=== PATIENT | male | born 1945 | race Caucasian/White ===

== ENCOUNTER → 2016-07-29 | Outpatient (CLI) | payer MEDICARE, OTHER ==
[~2016-07-29] MED LIST: ALLO100T PO; CALC500T55 PO; MULT-954 PO; ONDAN4ODT PO; SMV20T PO; TAMS-8 PO
[2016-07-29 16:22] LABS: MEAN CORPUSCULAR HGB CONC 32.6 g/dL (31.0-37.0); MEAN PLATELET VOLUME 10.4 FL (6.0-9.5); WHITE BLOOD COUNT 8.22 10^3uL (4.0-11.0)
[2016-07-29 16:38] LABS: ALBUMIN 4.2 g/dL (3.4-5.0); ANION GAP 14.1 MEQ/L (3-15); TOTAL PROTEIN 7.4 g/dL (6.4-8.5)
[2016-07-29 17:13] LABS: BILIRUBIN,URINE Negative (Negative); CLARITY,URINE Clear; COLOR,URINE Yellow; GLUCOSE, URINE (UA) Negative (Negative); LEUKOCYTE ESTERASE, URINE Negative (Negative); PH,URINE 5.5 (5.0 - 8.0); UROBILINOGEN,URINE 0.2 mg/dL (0.2-1.0)
== END ==
LOC: LAB 15:57
PROVIDERS: ATTEND Neurological Surgery
DX: Z01.812 Encounter for preprocedural laboratory examination (principal); M54.12 Radiculopathy, cervical region; Z98.890 Other specified postprocedural states
CPT/HCPCS: 36415; 80053; 81003; 85027; 85610; 85730

== ENCOUNTER 2016-09-13 11:25 | Emergency (ER) | payer MEDICARE, OTHER ==
[~2016-09-13] VITALS: Ht 182.9 cm; Wt 91.4 kg
--- OUTSIDE RECORDS SUMMARY | 2016-09-13 11:30 | XMS REPORT | Continuity of Care Document ---
Author Author [facility] Organization [facility] Address Unknown Phone Unavailable Care Team Providers Care Parole Officer Name Role Phone PCP Unavailable Source Comments Some departments are not documenting in the electronic medical record. If you do not see the information that you expected, contact Release of Information in the Health Information Management department at [phone] for further assistance in locating additional records.[facility] Active Allergies and Adverse Reactions Allergen Noted Date Severity Reactions Comments Pcn 07/20/2015 High BLISTERS Current Medications Prescription Sig. Disp. Refills Start End Date Status Date SIMVASTATIN PO Take 1 Tab by mouth Active daily. cefuroxime (CEFTIN) 500 Take 500 mg by mouth Active mg tablet every 12 hours. allopurinol (ZYLOPRIM) Take 300 mg by mouth Active 300 mg tablet daily. Active Problems Problem Noted Date Swelling of both ankles 07/20/2015 Social History Tobacco Use Types Packs/Day Years Used Date Never Smoker Last Filed Vital Signs Vital Sign Reading Time Taken Blood Pressure 120/58 07/20/2015 1:04 PM [employer]PER[employer] Pulse 80 07/20/2015 1:04 PM [employer] Temperature 36.7 C (98.1 F) 07/20/2015 1:04 PM [employer] Respiratory Rate 16 07/20/2015 1:04 PM [employer] Height 1.854 m (6' 1") 07/20/2015 1:04 PM [employer] Weight 100.064 kg (220 lb 9.6 07/20/2015 1:04 PM [employer] oz) Body Mass Index 29.11 07/20/2015 1:04 PM [employer] Oxygen Saturation - - Plan of Care Health Maintenance Due Date Last Done Comments Physical (Comprehensive) 1952 Exam Pertussis Vaccine 1956 Tetanus Vaccine 1963 Colorectal Cancer 01/02/1996 Screening Shingles Vaccine 2006 Prevnar/Pneumovax (#1) 2011 Influenza Vaccine 03/14/2016 Results from Last 3 Months Not on file
--- OUTSIDE RECORDS SUMMARY | 2016-09-13 11:31 | XMS REPORT | Continuity of Care Document ---
Author Author [facility] Organization [facility] Address Unknown Phone Unavailable Care Team Providers Care Staff Electrical Engineer Name Role Phone PCP Unavailable Source Comments Some departments are not documenting in the electronic medical record. If you do not see the information that you expected, contact Release of Information in the Health Information Management department at [phone] for further assistance in locating additional records.[facility] Active Allergies and Adverse Reactions Allergen [...] Taken Blood Pressure 120/58 07/20/2015 1:04 PM [employer] OPERATOR Pulse 80 07/20/2015 1:04 PM [employer] OPERATOR Temperature 36.7 C (98.1 F) 07/20/2015 1:04 PM [employer]MIL[employer] DRI[employer] OPERATOR Respiratory Rate 16 07/20/2015 1:04 PM BUTTERMILK DRIER OPERATOR Height 1.854 m (6' 1") 07/20/2015 1:04 PM BUTTERMILK DRIER OPERATOR Weight 100.064 kg (220 lb 9.6 07/20/2015 1:04 PM BUTTERMILK DRIER OPERATOR oz) Body Mass Index 29.11 07/20/2015 1:04 PM [employer]MIL[employer]RI[employer] OPERATOR Oxygen Saturation - - Plan of Care Health Maintenance Due Date Last Done Comments Physical (Comprehensive) 1952 Exam Pertussis Vaccine 1957 Tetanus Vaccine 1963 Colorectal Cancer 01/02/1996 Screening Shingles Vaccine 2006 Prevnar/Pneumovax (#1) 2011 Influenza Vaccine 03/14/2016 Results from Last 3 Months Not on file
[2016-09-13] MEDS ORDERED: SODIUM CHLORIDE FLUSH 10 ML SYR IV PRN (11:55)
[2016-09-13] MEDS ORDERED: ONDANSETRON 2 MG/ML (Z0FRAN) 2 ML VIAL IV ONE (11:55)
[2016-09-13] MEDS ORDERED: TAMS-8 PO (11:56)
[2016-09-13] MEDS ORDERED: ALLO100T PO (11:56)
[2016-09-13] MEDS ORDERED: SMV20T PO (11:56)
[2016-09-13] MEDS ORDERED: MULT-954 PO (11:56)
[2016-09-13] MEDS ORDERED: CALC500T55 PO (11:56)
[2016-09-13] MEDS: SODIUM CHLORIDE FLUSH 3 ML SYR IV PRN ×2 (12:03→13:49)
[2016-09-13 12:09] LABS: MEAN CORPUSCULAR HGB CONC 33.6 g/dL (31.0-37.0); MEAN PLATELET VOLUME 10.2 FL (6.0-9.5); PLATELET COUNT 231 10^3uL (150-450); WHITE BLOOD COUNT 11.11 10^3uL (4.0-11.0)
[2016-09-13 12:17] LABS: BAND NEUTROPHILS % 1 % (0-6); EOSINOPHILS % 1 % (0-4); LYMPHOCYTES # 0.4 #; MEAN CORPUSCULAR HEMOGLOBIN 26.3 PG (26.0-34.0); MEAN CORPUSCULAR VOLUME 78 FL (80-100); MONOCYTES # 0.4 #; MONOCYTES % 4 % (3-11); RBC MORPH NORMAL (NORMAL); SEGMENTED NEUTROPHILS % 90 % (51-67); TOTAL CELLS COUNTED 100
[2016-09-13 12:21] LABS: ALBUMIN 4.8 g/dL (3.4-5.0); ANION GAP 17.7 MEQ/L (3-15); TOTAL PROTEIN 8.4 g/dL (6.4-8.5)
[2016-09-13] MEDS ORDERED: OCTREOTIDE 100 MCG/ML (SandoSTATIN) 1 ML VIAL IV ONE (12:25)
[2016-09-13] MEDS ORDERED: LORazepam 2 MG/ML (ATIVAN) 1 ML VIAL IV ONE (12:45)
[2016-09-13] MEDS ORDERED: KETOROLAC 30 MG/ML (TORADOL) 1 ML VIAL IV ONE (16:00)
[2016-09-13 16:51] LABS: INFLUENZA VIRUS TYPE A ANTIBOD Negative (NEGATIVE); INFLUENZA VIRUS TYPE B ANTIBOD Negative (NEGATIVE)
[2016-09-13] MEDS ORDERED: ONDAN4ODT PO (17:35)
[2016-09-13 17:48] VITALS: BP 114/69
== END 2016-09-13 17:49 | disposition home or self-care (01) ==
LOC: ED 11:26
DX: K52.9 Noninfective gastroenteritis and colitis, unspecified (principal); M62.838 Other muscle spasm
CPT/HCPCS: 36415; 80053; 85025; 86140; 87502; 96361; 96374; 96375; 99284; J1885; J2060; J2354; J2405; J7030; 99283